=== PATIENT | male | born 1945 | race Caucasian/White ===

== ENCOUNTER 2017-12-11 16:06 | Inpatient (IN) | payer MEDICARE, MEDICAID ==
[2017-12-11] MEDS ORDERED: methylPREDNISolone Sodium Succinate 125 MG/2 ML SDV IVPUSH ONE (17:30)
[2017-12-11] MEDS: Oseltamivir 6 MG/ML Susp 60 ML Bot PO SCH (18:25)
[2017-12-11] MEDS ORDERED: traMADol 50 MG Tab PO PRN (19:19)
[2017-12-11] MEDS ORDERED: [UNRECOGNIZED DRUG - REMARK] TOP PRN (19:19)
[2017-12-11] MEDS: Albuterol/Ipratropium 3.0-0.5 MG/3 ML Neb Soln NEB PRN (20:01)
[2017-12-11] MEDS ORDERED: Oseltamivir 75 MG Cap PO SCH (21:00)
[2017-12-11] MEDS ORDERED: Allopurinol 100 MG Tab ONE (21:19)
[2017-12-11] MEDS: Ferrous Sulfate 325 MG Tab PO SCH (21:19)
[2017-12-11] MEDS: Simvastatin 20 MG Tab PO SCH (21:20)
[2017-12-11] MEDS: Allopurinol 100 MG Tab PO SCH (22:38)
[2017-12-12] MEDS: Omeprazole 20 MG Cap.CR PO SCH (06:59)
[2017-12-12] MEDS: Sodium Chloride 0.9% 5 ML Syringe FLUSH PRN (07:00)
[2017-12-12] MEDS: Albuterol/Ipratropium 3.0-0.5 MG/3 ML Neb Soln NEB PRN (07:12)
[2017-12-12] MEDS: Oseltamivir 6 MG/ML Susp 60 ML Bot PO SCH ×2 (08:42→20:35)
[2017-12-12] MEDS: Cholecalciferol (Vitamin D3) 1,000 Unit Tab PO SCH (08:42)
[2017-12-12] MEDS: Furosemide 40 MG Tab PO SCH (08:43)
[2017-12-12] MEDS: glipiZIDE 5 MG Tab PO SCH (08:48)
[2017-12-12] MEDS: Metoprolol Succinate 50 MG Tab.ER PO SCH (08:49)
[2017-12-12] MEDS: Hydrochlorothiazide/Triamterene 25-37.5 MG Cap PO SCH (08:50)
[2017-12-12] MEDS ORDERED: Codeine/guaiFENesin 100mg-10 MG/5 ML Syrup 10 ML Cup PO PRN (08:54)
[2017-12-12] MEDS ORDERED: predniSONE 20 MG Tab PO ONE (09:00)
[2017-12-12] MEDS ORDERED: glipiZIDE 5 MG Tab.ER PO SCH (09:00)
[2017-12-12] MEDS: Budesonide 0.5 MG/2 ML Neb Susp NEB SCH ×2 (09:36→20:34)
[2017-12-12] MEDS: Albuterol/Ipratropium 3.0-0.5 MG/3 ML Neb Soln NEB SCH ×4 (10:50→21:54)
[2017-12-12] MEDS ORDERED: Propofol 200 MG/20 ML SDV ONE (10:56)
[2017-12-12] MEDS: Simvastatin 20 MG Tab PO SCH (20:30)
[2017-12-12] MEDS: Ferrous Sulfate 325 MG Tab PO SCH (20:30)
[2017-12-12] MEDS: Allopurinol 100 MG Tab PO SCH (21:52)
[2017-12-13] MEDS: Albuterol/Ipratropium 3.0-0.5 MG/3 ML Neb Soln NEB SCH ×6 (02:12→20:31)
[2017-12-13] MEDS: Omeprazole 20 MG Cap.CR PO SCH (06:26)
[2017-12-13] MEDS: Budesonide 0.5 MG/2 ML Neb Susp NEB SCH ×2 (07:36→20:17)
--- NOTE | 2017-12-13 08:08 | PN ---
12/12/2017PATIENT NAME: JAYSON LIU This is a 72-year-old male who was admitted yesterday with influenza A as well as wheezing. He received one dose of Solu-Medrol 125 mg yesterday. I was made aware this morning that his DuoNebs were ordered every 4 hours p.r.n. This will be changed to a scheduled type of situation. The patient states that he feels about the same as he did yesterday, not much improvement. He has started on the Solu-Medrol, which the dose had to be adjusted for creatinine clearance. He was started on oral prednisone 60 mg p.o. one time today and this will be repeated tomorrow as well. Originally, we did plan to discharge him home today after observation however, he has not improved dramatically, and I feel that he needs more time in the hospital. He did have a lab work this morning which showed a normal white count of 7.2, it was 7.1 yesterday. Hemoglobin is 14.7. The remainder of CBC appears to be okay with the exception of a mild left shift of the neutrophils at 85%. Basic metabolic panel is normal with the exception of BUN and creatinine of 36 and 1.41 respectively and a GFR of 49. His glucose this morning was 285, most likely from steroids. PHYSICAL EXAMINATION: VITAL SIGNS: He is afebrile. Temp is 98.9, pulse 74, respirations 20, blood pressure 135/89, oxygen saturation is 90%-93% on room air. SKIN: Warm and dry to touch. CARDIAC: Reveals S1, S2 to be normal. Rate and rhythm are regular. No murmur, click, or gallops is auscultated. He does have inspiratory and expiratory wheezes. He does not have any rales that I can detect. No pedal edema. IMPRESSION: Influenza A with possible asthma/chronic obstructive pulmonary disease exacerbation. PLAN: We will change his DuoNebs to every 4 hours scheduled. He will also start on Pulmicort per nebulizer b.i.d. He will receive prednisone 60 mg x1 this morning. I did order a prescription cough medicine for him to take as needed for cough. We will entertain discharging him home tomorrow if he improves. /[id number]/MODL MTDD
[2017-12-13] MEDS: glipiZIDE 5 MG Tab PO SCH (08:12)
[2017-12-13] MEDS: Hydrochlorothiazide/Triamterene 25-37.5 MG Cap PO SCH (08:14)
[2017-12-13] MEDS: Furosemide 40 MG Tab PO SCH (08:14)
[2017-12-13] MEDS: Metoprolol Succinate 50 MG Tab.ER PO SCH (08:15)
[2017-12-13] MEDS: Cholecalciferol (Vitamin D3) 1,000 Unit Tab PO SCH (08:16)
[2017-12-13] MEDS: Oseltamivir 6 MG/ML Susp 60 ML Bot PO SCH ×2 (08:31→20:29)
[2017-12-13] MEDS: methylPREDNISolone Sodium Succinate 125 MG/2 ML SDV IVPUSH SCH ×2 (10:26→17:41)
[2017-12-13] MEDS: Sodium Chloride 0.9% 5 ML Syringe FLUSH PRN (10:27)
[2017-12-13] MEDS: Ferrous Sulfate 325 MG Tab PO SCH (20:26)
[2017-12-13] MEDS: Simvastatin 20 MG Tab PO SCH (20:26)
[2017-12-13] MEDS: Allopurinol 100 MG Tab PO SCH (21:56)
[2017-12-14] MEDS: methylPREDNISolone Sodium Succinate 125 MG/2 ML SDV IVPUSH SCH ×3 (00:58→21:02)
[2017-12-14] MEDS: Albuterol/Ipratropium 3.0-0.5 MG/3 ML Neb Soln NEB SCH ×6 (00:58→21:02)
[2017-12-14] MEDS: Omeprazole 20 MG Cap.CR PO SCH (06:16)
[2017-12-14] MEDS: Budesonide 0.5 MG/2 ML Neb Susp NEB SCH ×2 (07:34→20:52)
--- NOTE | 2017-12-14 08:09 | PN ---
12/13/2017PATIENT NAME: JAYSON LIU This is a 72-year-old male who was admitted to the hospital on 05/10/2018 with influenza A with wheezing. The patient's wheezing has not improved too much at all during his hospitalization. He is on DuoNebs every four hours as well as Pulmicort b.i.d. He received a one time dose of Solu-Medrol 125 on admission and was changed to oral prednisone yesterday. He continues to feel as though he is wheezing. He states he feels marginally better than he did on admission. He has been afebrile since admission. SIGNIFICANT LABORATORY DATA: White count has increased from 7.2 to 10.0, but still normal. Hemoglobin and hematocrit are normal at 14.1 and 45.1 respectively. BUN and creatinine are elevated at 38 and 1.43 with a GFR of 48. Glucose is 160 today. He does take glipizide and we will start checking Accu- Cheks. An A1c will be added to his lab work tomorrow. Initially, we did plan to send him home today, however, with no improvement in the wheezing. I feel he needs to stay one more day. PHYSICAL EXAMINATION: VITAL SIGNS: Temp is 97.2, pulse 90, respirations is 24, blood pressure 133/78, oxygen saturation is 95% on 2 L of oxygen. SKIN: Warm and dry to touch. CARDIAC: Reveals S1, S2 to be normal. Rate and rhythm are regular. No murmur, click, or gallop is auscultated. LUNGS: Inspiratory as well as expiratory wheezes throughout. He does not appear to be in any respiratory distress. There is mild pedal edema. IMPRESSION: Influenza A with wheezing, not significantly improved. He will stay in the hospital one more day. We will give him Solu-Medrol 80 mg t.i.d. today and he will receive a dose tomorrow as well prior to rounds. Labs will be checked again tomorrow and an A1c will be added to this as well. Accu-Cheks will be checked per protocol. I discussed my findings with Dr. Rachel Forde, who concurs with the plan of care. PLAN: Plan for this patient will be discharge in the morning if there is some improvement. /[id number]/MODL
[2017-12-14] MEDS: glipiZIDE 5 MG Tab PO SCH (08:18)
[2017-12-14] MEDS: Hydrochlorothiazide/Triamterene 25-37.5 MG Cap PO SCH (08:23)
[2017-12-14] MEDS: Metoprolol Succinate 50 MG Tab.ER PO SCH (08:24)
[2017-12-14] MEDS: Furosemide 40 MG Tab PO SCH (08:24)
[2017-12-14] MEDS: Cholecalciferol (Vitamin D3) 1,000 Unit Tab PO SCH (08:25)
[2017-12-14] MEDS: Oseltamivir 6 MG/ML Susp 60 ML Bot PO SCH ×2 (08:36→21:03)
[2017-12-14] MEDS: Sodium Chloride 0.9% 5 ML Syringe FLUSH PRN ×2 (08:41→14:19)
[2017-12-14] MEDS ORDERED: Acetaminophen 325 MG Tab PO PRN (11:11)
[2017-12-14] MEDS ORDERED: Magnesium Hydroxide 400 MG/5 ML Susp 30 ML Cup PO ONE (11:30)
[2017-12-14] MEDS ORDERED: cefTRIAXone 1 GM in Sodium Chloride 0.9% 50 ML IV SCH (13:30)
[2017-12-14] MEDS: Azithromycin 500 MG in Sodium Chloride 0.9% 250 ML IV SCH (14:18)
[2017-12-14] MEDS: cefTRIAXone 1 GM Vial IVPUSH SCH (14:18)
[2017-12-14] MEDS ORDERED: Insulin Aspart 100 Units/ML 3 ML Pen SUBCUT ONE (17:56)
[2017-12-14] MEDS ORDERED: Insulin Regular, Human 100 Units/ML 10 ML Vial SUBCUT PRN (20:53)
[2017-12-14] MEDS: Simvastatin 20 MG Tab PO SCH (21:02)
[2017-12-14] MEDS: Ferrous Sulfate 325 MG Tab PO SCH (21:02)
[2017-12-14] MEDS: Allopurinol 100 MG Tab PO SCH (21:03)
[2017-12-14] MEDS: Insulin Regular, Human 100 Units/ML 10 ML Vial SUBCUT SCH (21:11)
[2017-12-15] MEDS: Albuterol/Ipratropium 3.0-0.5 MG/3 ML Neb Soln NEB SCH ×7 (02:06→21:07)
[2017-12-15] MEDS: Omeprazole 20 MG Cap.CR PO SCH (06:31)
[2017-12-15] MEDS: Budesonide 0.5 MG/2 ML Neb Susp NEB SCH ×2 (07:38→20:49)
--- NOTE | 2017-12-15 08:09 | PN ---
12/14/2017PATIENT NAME: JAYSON LIU This is a 72-year-old male who was admitted to the hospital on Monday12/11/2017 with influenza A and shortness of breath with wheezing. Chest x-ray upon admission was negative for acute changes. The patient's lungs have not improved since he has been in the hospital. He continues to be short of breath and continues to be wheezy. His wheezing seems to have perhaps improved just a tiny bit today. He has been on Solu-Medrol 80 mg IV t.i.d. for the last two days. Initially our plan was to discharge him home today and this has been a daily plan; however, the patient does not seem to be improving significantly at all. His white count has gone from 7.1 on admission to 10.5. Neutrophil count is also increased to 80.8%. His chemistry show a low sodium of 135, this has been normal in the past. BUN and creatinine are at 40 and 1.39 with a GFR of 50, which is actually improved with his hospitalization. Glucose readings have been elevated, most likely secondary to steroid use. A1c was drawn today and was found to be 6.9%. The patient reports today he has not had a bowel movement since he has been in the hospital. He also complains of a dull headache. He has not requested any p.r.n. Tylenol for this. He continues to complain of some shortness of breath and wheezing. He is on continuous oxygen. In addition to the IV steroids, he is also receiving DuoNebs every 4 hours while awake. He is also receiving Pulmicort per nebulizer. All of his home medications have been continued as before. PHYSICAL EXAMINATION: GENERAL: He appears to be in no acute distress. VITAL SIGNS: He has been afebrile. Pulse is 89, respirations 22, blood pressure 131/67, and his oxygen saturation is 95% on 2 L of oxygen. SKIN: Warm and dry to touch. CARDIAC: Exam reveals S1, S2 to be normal. Rate and rhythm are regular. No murmur, click, or gallop is auscultated. LUNGS: Have inspiratory as well as expiratory wheezes. There does not appear to be any rales or rhonchi. He does have some mild pedal edema. IMPRESSION: 1. Influenza A with wheezing and shortness of breath with concern of a hospital-acquired pneumonia with an elevated white count of 10.5, which was normal until today. Chest x-ray will be repeated today and the report pending. I am concerned that he may need some intravenous antibiotics if he has developed a pneumonia. He will continue with IV Solu-Medrol. However, we did reduce the dose from 80 mg IV t.i.d. to 80 mg IV b.i.d. He will continue DuoNebs as well as Tamiflu and Pulmicort. 2. Constipation. He will receive milk of magnesia as a one-time dose and this may be repeated b.i.d. until results are obtained. 3. Headache. I encouraged him to ask for p.r.n. Tylenol for the same. We will continue to monitor him closely. 4. Diabetes mellitus, well controlled until this point with an A1c of 6.9%. His glucose readings have been elevated in the hospital and that is most likely secondary to his use of intravenous steroids. PLAN: Plan will be for discharge tomorrow unless some unforeseen changes occur. /[id number]/MODL
[2017-12-15] MEDS: glipiZIDE 5 MG Tab PO SCH (08:24)
[2017-12-15] MEDS: Insulin Regular, Human 100 Units/ML 10 ML Vial SUBCUT SCH ×4 (08:26→21:05)
[2017-12-15] MEDS: Hydrochlorothiazide/Triamterene 25-37.5 MG Cap PO SCH (08:28)
[2017-12-15] MEDS: Furosemide 40 MG Tab PO SCH (08:28)
[2017-12-15] MEDS: Cholecalciferol (Vitamin D3) 1,000 Unit Tab PO SCH (08:29)
[2017-12-15] MEDS: Metoprolol Succinate 50 MG Tab.ER PO SCH (08:32)
[2017-12-15] MEDS: methylPREDNISolone Sodium Succinate 125 MG/2 ML SDV IVPUSH SCH ×2 (08:33→20:53)
--- NOTE | 2017-12-15 08:39 | PCM.PN ---
- General Info Date of Service: 12/15/17 Admission Dx/Problem (Free Text): Influenza A - Review of Systems Systems Review Comment:: Mr. Mazariegos is seen this morning on inpatient rounds. He was admitted on from clinic after testing positive for Influenza A. He was also noted to be very wheezy and so steroids have been given. He really has not improved significantly since admission. He had a repeat CXR done on 12/14/17 which showed a new right minimal pleural effusion. His WBC had also increased although no fevers. He was started on azithromycin and rocephin yesterday to empirically cover for a possible pneumonia. He continues with oxygen at 2L to keep sats >90%. He was off oxygen this morning for a trial and his sats dropped. "It's no use sending me home if I'll just come right back". He does have a hx of diabetes as well and his BG's have been high because of the steroids. He has been receiving sliding scale insulin for this. He denies any pain, reports his appetite is OK and he is passing his bowels and urine without difficulty. - Patient Data Vitals - Most Recent: Last Vital Signs Temp 98.3 F 12/15/17 06:54 Pulse 73 12/15/17 06:54 Resp 20 12/15/17 06:54 BP 125/76 12/15/17 06:54 Pulse Ox 95 12/15/17 07:35 Weight - Most Recent: 316 lb 11.2 oz I&O - Last 24 Hours: Intake & Output 12/14/17 12/15/17 12/15/17 22:59 06:59 14:59 Intake Total 960 200 Balance 960 200 Lab Results Last 24 Hours: Laboratory Results - last 24 hr 12/14/17 12/14/17 12/15/17 Range/Units 17:51 20:49 06:31 WBC (5.0-10.0) 10^3/uL RBC (4.50-6.00) 10^6/uL Hgb (13.0-17.0) g/dL Hct (40.0-52.0) % MCV (82.0-92.0) fL MCH (27.0-31.0) pg MCHC (32.0-36.0) g/dL RDW (11.5-14.5) % Plt Count (150-300) 10^3/uL MPV (7.4-10.4) fL Neut % (Auto) (50.0-70.0) % Lymph % (Auto) (20.0-40.0) % [place] % (Auto) (2.0-8.0) % Eos % (Auto) (1.0-3.0) % Baso % (Auto) (0.0-1.0) % Neut # (Auto) (2.5-7.0) 10^3/uL Lymph # (Auto) (1.0-4.0) 10^3/uL [place] # (Auto) (0.1-0.8) 10^3/uL Eos # (Auto) (0.1-0.3) 10^3/uL Baso # (Auto) (0.0-0.1) 10^3/uL Sodium (136-145) mmol/L Potassium (3.3-5.3) mmol/L Chloride (98-115) mmol/L Carbon Dioxide (21.0-32.0) mmol/L BUN (6-25) mg/dL Creatinine (0.51-1.17) mg/dL Est Cr Clr Drug Dosing mL/min Estimated GFR (MDRD) mL/min Glucose (70-110) mg/dL POC Glucose 417 H 373 H 273 H (74-106) mg/dl Calcium (8.7-10.3) mg/dL 12/15/17 12/15/17 Range/Units 07:29 07:29 WBC 11.1 H (5.0-10.0) 10^3/uL RBC 4.87 (4.50-6.00) 10^6/uL Hgb 13.9 (13.0-17.0) g/dL Hct 44.5 (40.0-52.0) % MCV 91.3 (82.0-92.0) fL MCH 28.4 (27.0-31.0) pg MCHC 31.1 L (32.0-36.0) g/dL RDW 14.3 (11.5-14.5) % Plt Count 186 (150-300) 10^3/uL MPV 7.9 (7.4-10.4) fL Neut % (Auto) 90.6 H (50.0-70.0) % Lymph % (Auto) 5.7 L (20.0-40.0) % [place] % (Auto) 3.3 (2.0-8.0) % Eos % (Auto) 0.1 L (1.0-3.0) % Baso % (Auto) 0.3 (0.0-1.0) % Neut # (Auto) 10.1 H (2.5-7.0) 10^3/uL Lymph # (Auto) 0.6 L (1.0-4.0) 10^3/uL [place] # (Auto) 0.4 (0.1-0.8) 10^3/uL Eos # (Auto) 0.0 L (0.1-0.3) 10^3/uL Baso # (Auto) 0.0 (0.0-0.1) 10^3/uL Sodium 133 L (136-145) mmol/L Potassium 4.4 (3.3-5.3) mmol/L Chloride 94 L (98-115) mmol/L Carbon Dioxide 28.8 (21.0-32.0) mmol/L BUN 45 H (6-25) mg/dL Creatinine 1.33 H (0.51-1.17) mg/dL Est Cr Clr Drug Dosing 47.86 mL/min Estimated GFR (MDRD) 53 mL/min Glucose 289 H (70-110) mg/dL POC Glucose (74-106) mg/dl Calcium 8.7 (8.7-10.3) mg/dL Med Orders - Current: Current Medications Acetaminophen (Tylenol) 325 - 650 mg PO Q4H PRN PRN Reason: Pain Last Admin: 12/14/17 11:36 Dose: 650 mg Albuterol/Ipratropium (Duoneb 3.0-0.5 Mg/3 Ml) 3 ml NEB Q4HWA [facility] Last Admin: 12/15/17 05:49 Dose: 3 ml Allopurinol (Zyloprim) 300 mg PO DAILY@2200 [facility] Last Admin: 12/14/17 21:03 Dose: 300 mg Budesonide (Pulmicort) 0.5 mg NEB BIDRT [facility] Last Admin: 12/15/17 07:38 Dose: 0.5 mg Ceftriaxone Sodium (Rocephin) 1 gm IVPUSH Q24H [facility] Last Admin: 12/14/17 14:18 Dose: 1 gm Cholecalciferol (Vitamin D3) 2,000 units PO DAILY [facility] Last Admin: 12/15/17 08:29 Dose: 2,000 units Ferrous Sulfate (Ferrous Sulfate) 325 mg PO BEDTIME [facility] Last Admin: 12/14/17 21:02 Dose: 325 mg Furosemide (Lasix) 40 mg PO DAILY [facility] Last Admin: 12/15/17 08:28 Dose: 40 mg Glipizide (Glucotrol) 5 mg PO WITHBREAKFAST [facility] Last Admin: 12/15/17 08:24 Dose: 5 mg Guaifenesin/Codeine Phosphate (Robitussin Ac) 10 ml PO Q4H PRN PRN Reason: Cough Azithromycin 500 mg/ Sodium (Chloride) 250 mls @ 250 mls/hr IV Q24H [facility] Last Admin: 12/14/17 14:18 Dose: 250 mls/hr Insulin Human Regular (Novolin R) 0 unit SUBCUT WITHMEALSANDBED [facility] PRN Reason: Protocol Last Admin: 12/15/17 08:26 Dose: 3 unit Methylprednisolone Sodium Succinate (Solu-Medrol) 80 mg IVPUSH Q12H [facility] Last Admin: 12/14/17 21:02 Dose: 80 mg Metoprolol Succinate (Toprol Xl) 50 mg PO DAILY [facility] Last Admin: 12/14/17 08:24 Dose: 50 mg Omeprazole (Omeprazole) 20 mg PO DAILY@0700 [facility] Last Admin: 12/15/17 06:31 Dose: 20 mg Oseltamivir Phosphate (Tamiflu) 30 mg PO BID [facility] Stop: 12/16/17 09:01 Last Admin: 12/14/17 21:03 Dose: 30 mg Simvastatin (Zocor) 20 mg PO BEDTIME [facility] Last Admin: 12/14/17 21:02 Dose: 20 mg Sodium Chloride (Syrex Flush) 5 ml FLUSH Q8HR PRN PRN Reason: Keep Vein Open Last Admin: 12/14/17 14:19 Dose: 5 ml Tramadol HCl (Ultram) 50 mg PO Q6H PRN PRN Reason: Pain Last Admin: 12/11/17 21:20 Dose: 50 mg Triamterene/HCTZ (Dyazide 25-37.5 Mg) 1 each PO DAILY [facility] Last Admin: 12/15/17 08:28 Dose: 1 each Discontinued Medications Albuterol/Ipratropium (Duoneb 3.0-0.5 Mg/3 Ml) 3 ml NEB Q4H PRN PRN Reason: Shortness Of Breath/wheezing Last Admin: 12/12/17 07:12 Dose: 3 ml Albuterol/Ipratropium (Duoneb 3.0-0.5 Mg/3 Ml) 3 ml NEB Q4HRRT [facility] Last Admin: 12/13/17 09:08 Dose: 3 ml Allopurinol (Zyloprim) Confirm Administered Dose 100 mg .ROUTE .STK-MED ONE Stop: 12/11/17 21:20 Last Admin: 12/11/17 22:30 Dose: Not Given Glipizide (Glucotrol Xl) 5 mg PO DAILY [facility] Insulin Aspart (Novolog) 10 unit SUBCUT ONETIME ONE Stop: 12/14/17 17:57 Last Admin: 12/14/17 18:13 Dose: 10 unit Insulin Human Regular (Novolin R) 0 unit SUBCUT WITHMEALSANDBED PRN; Protocol PRN Reason: Hyperglycemia Magnesium Hydroxide (Milk Of Magnesia) 30 ml PO ONETIME ONE Stop: 12/14/17 11:31 Last Admin: 12/14/17 11:36 Dose: 30 ml Methylprednisolone Sodium Succinate (Solu-Medrol) 125 mg IVPUSH ONETIME ONE Stop: 12/11/17 17:31 Last Admin: 12/11/17 17:57 Dose: 125 mg Methylprednisolone Sodium Succinate (Solu-Medrol) 80 mg IVPUSH Q8H [facility] Last Admin: 12/14/17 08:38 Dose: 80 mg Oseltamivir Phosphate (Tamiflu) 75 mg PO BID [facility] Prednisone (Prednisone) 60 mg PO ONETIME ONE Stop: 12/12/17 09:01 Last Admin: 12/12/17 08:43 Dose: 60 mg Propofol (Diprivan 20 Ml) Confirm Administered Dose 400 mg .ROUTE .STK-MED ONE Stop: 12/12/17 10:57 Last Admin: 12/12/17 11:20 Dose: Not Given - Exam Quality Assessment: Supplemental Oxygen General: Alert, Oriented, Cooperative, No Acute Distress Lungs: Wheezing (Although the wheezing is improved from when I last listened to him 3 days ago.) Cardiovascular: Regular Rate, Regular Rhythm, No Murmurs GI/Abdominal Exam: Normal Bowel Sounds - Problem List & Annotations (1) Influenza A SNOMED Code(s): 729143982 Code(s): J10.1 - FLU DUE TO OTH IDENT INFLUENZA VIRUS W OTH RESP MANIFEST Status: Acute Current Visit: Yes (2) CKD (chronic kidney disease) stage 3, GFR 30-59 ml/min SNOMED Code(s): 505422460 Code(s): N18.3 - CHRONIC KIDNEY DISEASE, STAGE 3 (MODERATE) Status: Acute Current Visit: Yes (3) Diabetes SNOMED Code(s): 95342930 Code(s): E11.9 - TYPE 2 DIABETES MELLITUS WITHOUT COMPLICATIONS Status: Acute Current Visit: Yes (4) Hypertension SNOMED Code(s): 23842946 Code(s): I10 - ESSENTIAL (PRIMARY) HYPERTENSION Status: Acute Current Visit: Yes (5) Hyperlipidemia SNOMED Code(s): 32086032 Code(s): E78.5 - HYPERLIPIDEMIA, UNSPECIFIED Status: Acute Current Visit : Yes - Problem List Review Problem List Initiated/Reviewed/Updated: Yes - My Orders Last 24 Hours: My Active Orders 12/16/17 05:11 BMP [BASIC METABOLIC PANEL,BMP] [CHEM] AM CBC WITH AUTO DIFF [HEME] AM - Assessment Assessment:: Influenza A Wheezing Hypoxia DM HTN Hyperlipidemia CKD - Plan Plan:: Influenza A. Continue with tamiflu BID to finish out a 5 day course. Wheezing. Continue with steroids and nebs. Hypoxia. Oxygen to keep sats >90%. DM. SSI, continue home meds. HTN. Continue home meds, controlled. Hyperlipidemia. Continue home meds. CKD. Stable. Will continue with azithromycin and rocephin. Uncertain discharge date, ideally will have him weaned off oxygen as he is not on this as an outpatient.
[2017-12-15] MEDS: Oseltamivir 6 MG/ML Susp 60 ML Bot PO SCH ×2 (09:12→21:03)
[2017-12-15] MEDS: cefTRIAXone 1 GM Vial IVPUSH SCH (14:57)
[2017-12-15] MEDS: Azithromycin 500 MG in Sodium Chloride 0.9% 250 ML IV SCH (15:07)
[2017-12-15] MEDS: Simvastatin 20 MG Tab PO SCH (21:00)
[2017-12-15] MEDS: Ferrous Sulfate 325 MG Tab PO SCH (21:00)
[2017-12-15] MEDS: Allopurinol 100 MG Tab PO SCH (21:04)
[2017-12-16] MEDS: Albuterol/Ipratropium 3.0-0.5 MG/3 ML Neb Soln NEB SCH ×6 (01:42→21:45)
[2017-12-16] MEDS: Omeprazole 20 MG Cap.CR PO SCH (06:09)
[2017-12-16] MEDS: glipiZIDE 5 MG Tab PO SCH (08:33)
[2017-12-16] MEDS: Insulin Regular, Human 100 Units/ML 10 ML Vial SUBCUT SCH ×4 (08:36→21:43)
[2017-12-16] MEDS: Furosemide 40 MG Tab PO SCH (08:37)
[2017-12-16] MEDS: Budesonide 0.5 MG/2 ML Neb Susp NEB SCH ×2 (08:39→20:24)
[2017-12-16] MEDS: Cholecalciferol (Vitamin D3) 1,000 Unit Tab PO SCH (08:40)
[2017-12-16] MEDS: Hydrochlorothiazide/Triamterene 25-37.5 MG Cap PO SCH (08:41)
[2017-12-16] MEDS: Metoprolol Succinate 50 MG Tab.ER PO SCH (08:41)
[2017-12-16] MEDS: Oseltamivir 6 MG/ML Susp 60 ML Bot PO SCH (08:41)
[2017-12-16] MEDS: methylPREDNISolone Sodium Succinate 125 MG/2 ML SDV IVPUSH SCH ×2 (08:47→20:34)
[2017-12-16] MEDS ORDERED: Albuterol/Ipratropium 3.0-0.5 MG/3 ML Neb Soln NEB ONE (10:24)
[2017-12-16] MEDS ORDERED: Sodium Chloride 0.9% 500 ML IV SCH (10:30)
--- NOTE | 2017-12-16 11:29 | PCM.PN ---
- General Info Date of Service: 12/16/17 Admission Dx/Problem (Free Text): Influenza A Subjective Update: Patient was seen this morning on inpatient rounds. He was admitted on 2017 for influenza A positive results. He has made gradual improvement since admission. However, wheezing and shortness of breath persist. Patient is currently on Rocephin, Zithromax, and Solu-Medrol daily to empirically cover for possible pneumonia. Chest x-ray done on 12/14/2017 showed minimal right pleural effusion. He is currently off oxygen while in bed, and oxygen saturation maintains at 92%. However, when he does ambulate oxygen saturation does drop into the 80s. He is concerned that he is not getting better, and is not comfortable being discharged. Functional Status: Reports: Pain Controlled - Review of Systems General: Reports: No Symptoms. Denies: Fever HEENT: Reports: No Symptoms Pulmonary: Reports: Shortness of Breath, Wheezing Cardiovascular: Reports: No Symptoms Gastrointestinal: Reports: No Symptoms Genitourinary: Reports: No Symptoms Musculoskeletal: Reports: No Symptoms Skin: Reports: No Symptoms Neurological: Reports: No Symptoms Psychiatric: Reports: No Symptoms - Patient Data Vitals - Most Recent: Last Vital Signs Temp 98.7 F 12/16/17 06:13 Pulse 67 12/16/17 08:41 Resp 20 12/16/17 06:13 BP 133/80 12/16/17 08:41 Pulse Ox 95 12/16/17 09:00 Weight - Most Recent: 316 lb 11.2 oz I&O - Last 24 Hours: Intake & Output 12/15/17 12/16/17 12/16/17 22:59 06:59 14:59 Intake Total 700 50 Balance 700 50 Lab Results Last 24 Hours: Laboratory Results - last 24 hr 12/15/17 12/15/17 12/15/17 Range/Units 11:25 17:29 20:58 WBC (5.0-10.0) 10^3/uL RBC (4.50-6.00) 10^6/uL Hgb (13.0-17.0) g/dL Hct (40.0-52.0) % MCV (82.0-92.0) fL MCH (27.0-31.0) pg MCHC (32.0-36.0) g/dL RDW (11.5-14.5) % Plt Count (150-300) 10^3/uL MPV (7.4-10.4) fL Neut % (Auto) (50.0-70.0) % Lymph % (Auto) (20.0-40.0) % Benton % (Auto) (2.0-8.0) % Eos % (Auto) (1.0-3.0) % Baso % (Auto) (0.0-1.0) % Neut # (Auto) (2.5-7.0) 10^3/uL Lymph # (Auto) (1.0-4.0) 10^3/uL Benton # (Auto) (0.1-0.8) 10^3/uL Eos # (Auto) (0.1-0.3) 10^3/uL Baso # (Auto) (0.0-0.1) 10^3/uL Sodium (136-145) mmol/L Potassium (3.3-5.3) mmol/L Chloride (98-115) mmol/L Carbon Dioxide (21.0-32.0) mmol/L BUN (6-25) mg/dL Creatinine (0.51-1.17) mg/dL Est Cr Clr Drug Dosing mL/min Estimated GFR (MDRD) mL/min Glucose (70-110) mg/dL POC Glucose 294 H 246 H 252 H (74-106) mg/dl Calcium (8.7-10.3) mg/dL 12/16/17 12/16/17 12/16/17 Range/Units 06:08 08:10 08:10 WBC 10.6 H (5.0-10.0) 10^3/uL RBC 4.87 (4.50-6.00) 10^6/uL Hgb 14.5 (13.0-17.0) g/dL Hct 44.4 (40.0-52.0) % MCV 91.2 (82.0-92.0) fL MCH 29.8 (27.0-31.0) pg MCHC 32.7 (32.0-36.0) g/dL RDW 14.8 H (11.5-14.5) % Plt Count 193 (150-300) 10^3/uL MPV 8.4 (7.4-10.4) fL Neut % (Auto) 90.8 H (50.0-70.0) % Lymph % (Auto) 6.1 L (20.0-40.0) % Benton % (Auto) 2.9 (2.0-8.0) % Eos % (Auto) 0.1 L (1.0-3.0) % Baso % (Auto) 0.1 (0.0-1.0) % Neut # (Auto) 9.7 H (2.5-7.0) 10^3/uL Lymph # (Auto) 0.6 L (1.0-4.0) 10^3/uL Benton # (Auto) 0.3 (0.1-0.8) 10^3/uL Eos # (Auto) 0.0 L (0.1-0.3) 10^3/uL Baso # (Auto) 0.0 (0.0-0.1) 10^3/uL Sodium 131 L (136-145) mmol/L Potassium 4.2 (3.3-5.3) mmol/L Chloride 93 L (98-115) mmol/L Carbon Dioxide 27.8 (21.0-32.0) mmol/L BUN 51 H* (6-25) mg/dL Creatinine 1.33 H (0.51-1.17) mg/dL Est Cr Clr Drug Dosing 47.86 mL/min Estimated GFR (MDRD) 53 mL/min Glucose 275 H (70-110) mg/dL POC Glucose 235 H (74-106) mg/dl Calcium 8.8 (8.7-10.3) mg/dL Med Orders - Current: Current Medications Acetaminophen (Tylenol) 325 - 650 mg PO Q4H PRN PRN Reason: Pain Last Admin: 12/14/17 11:36 Dose: 650 mg Albuterol/Ipratropium (Duoneb 3.0-0.5 Mg/3 Ml) 3 ml NEB Q4HWA [facility] Last Admin: 12/16/17 10:17 Dose: 3 ml Allopurinol (Zyloprim) 300 mg PO DAILY@2200 [facility] Last Admin: 12/15/17 21:04 Dose: 300 mg Budesonide (Pulmicort) 0.5 mg NEB BIDRT [facility] Last Admin: 12/16/17 08:39 Dose: 0.5 mg Ceftriaxone Sodium (Rocephin) 1 gm IVPUSH Q24H [facility] Last Admin: 12/15/17 14:57 Dose: 1 gm Cholecalciferol (Vitamin D3) 2,000 units PO DAILY [facility] Last Admin: 12/16/17 08:40 Dose: 2,000 units Ferrous Sulfate (Ferrous Sulfate) 325 mg PO BEDTIME [facility] Last Admin: 12/15/17 21:00 Dose: 325 mg Furosemide (Lasix) 40 mg PO DAILY [facility] Last Admin: 12/16/17 08:37 Dose: 40 mg Glipizide (Glucotrol) 5 mg PO WITHBREAKFAST [facility] Last Admin: 12/16/17 08:33 Dose: 5 mg Guaifenesin/Codeine Phosphate (Robitussin Ac) 10 ml PO Q4H PRN PRN Reason: Cough Azithromycin 500 mg/ Sodium (Chloride) 250 mls @ 250 mls/hr IV Q24H [facility] Last Admin: 12/15/17 15:07 Dose: 250 mls/hr Insulin Human Regular (Novolin R) 0 unit SUBCUT WITHMEALSANDBED [facility] PRN Reason: Protocol Last Admin: 12/16/17 08:36 Dose: 2 unit Methylprednisolone Sodium Succinate (Solu-Medrol) 80 mg IVPUSH Q12H [facility] Last Admin: 12/16/17 08:47 Dose: 80 mg Metoprolol Succinate (Toprol Xl) 50 mg PO DAILY [facility] Last Admin: 12/16/17 08:41 Dose: 50 mg Omeprazole (Omeprazole) 20 mg PO DAILY@0700 [facility] Last Admin: 12/16/17 06:09 Dose: 20 mg Simvastatin (Zocor) 20 mg PO BEDTIME [facility] Last Admin: 12/15/17 21:00 Dose: 20 mg Sodium Chloride (Syrex Flush) 5 ml FLUSH Q8HR PRN PRN Reason: Keep Vein Open Last Admin: 12/14/17 14:19 Dose: 5 ml Tramadol HCl (Ultram) 50 mg PO Q6H PRN PRN Reason: Pain Last Admin: 12/11/17 21:20 Dose: 50 mg Triamterene/HCTZ (Dyazide 25-37.5 Mg) 1 each PO DAILY [facility] Last Admin: 12/16/17 08:41 Dose: 1 each Discontinued Medications Albuterol/Ipratropium (Duoneb 3.0-0.5 Mg/3 Ml) 3 ml NEB Q4H PRN PRN Reason: Shortness Of Breath/wheezing Last Admin: 12/12/17 07:12 Dose: 3 ml Albuterol/Ipratropium (Duoneb 3.0-0.5 Mg/3 Ml) 3 ml NEB Q4HRRT [facility] Last Admin: 12/13/17 09:08 Dose: 3 ml Albuterol/Ipratropium (Duoneb 3.0-0.5 Mg/3 Ml) 3 ml NEB ONETIME ONE Stop: 12/16/17 10:25 Allopurinol (Zyloprim) Confirm Administered Dose 100 mg .ROUTE .STK-MED ONE Stop: 12/11/17 21:20 Last Admin: 12/11/17 22:30 Dose: Not Given Glipizide (Glucotrol Xl) 5 mg PO DAILY [facility] Sodium Chloride (Normal Saline) 500 mls @ 999 mls/hr IV .BOLUS [facility] Last Admin: 12/16/17 10:47 Dose: 999 mls/hr Insulin Aspart (Novolog) 10 unit SUBCUT ONETIME ONE Stop: 12/14/17 17:57 Last Admin: 12/14/17 18:13 Dose: 10 unit Insulin Human Regular (Novolin R) 0 unit SUBCUT WITHMEALSANDBED PRN; Protocol PRN Reason: Hyperglycemia Magnesium Hydroxide (Milk Of Magnesia) 30 ml PO ONETIME ONE Stop: 12/14/17 11:31 Last Admin: 12/14/17 11:36 Dose: 30 ml Methylprednisolone Sodium Succinate (Solu-Medrol) 125 mg IVPUSH ONETIME ONE Stop: 12/11/17 17:31 Last Admin: 12/11/17 17:57 Dose: 125 mg Methylprednisolone Sodium Succinate (Solu-Medrol) 80 mg IVPUSH Q8H [facility] Last Admin: 12/14/17 08:38 Dose: 80 mg Oseltamivir Phosphate (Tamiflu) 75 mg PO BID KAYLIN Oseltamivir Phosphate (Tamiflu) 30 mg PO BID [facility] Stop: 12/16/17 09:01 Last Admin: 12/16/17 08:41 Dose: 30 mg Prednisone (Prednisone) 60 mg PO ONETIME ONE Stop: 12/12/17 09:01 Last Admin: 12/12/17 08:43 Dose: 60 mg Propofol (Diprivan 20 Ml) Confirm Administered Dose 400 mg .ROUTE .STK-MED ONE Stop: 12/12/17 10:57 Last Admin: 12/12/17 11:20 Dose: Not Given - Exam Quality Assessment: Supplemental Oxygen General: Alert, Oriented, Cooperative, No Acute Distress Neck: Supple Lungs: Wheezing (Diffuse end expiratory) Cardiovascular: Regular Rate, Regular Rhythm, No Murmurs GI/Abdominal Exam: Normal Bowel Sounds, Soft, Non-Tender Back Exam: Normal Inspection. No: CVA Tenderness (L), CVA Tenderness (R) Extremities: Normal Inspection, No Pedal Edema Skin: Warm, Dry, Intact Neurological: Normal Speech, Normal Tone Psy/Mental Status: Alert, Normal Affect, Normal Mood - Problem List Review Problem List Initiated/Reviewed/Updated: Yes - My Orders Last 24 Hours: My Active Orders 12/16/17 11:20 Chest 2V [CR] Routine - Assessment Assessment:: Influenza A Wheezing Hypoxia DM HTN Hyperlipidemia CKD Patient continues to have wheezing and shortness of breath with ambulation, although he is on DuoNeb every 4 hours and Solu-Medrol 80 mg twice a day. Values show BUN value of 51 from 45 yesterday. There has been a gradual increase in BUN since admission. Patient has completed course of Tamiflu for influenza A, but will continue on Rocephin, Zithromax, DuoNeb, and Solu-Medrol. Chest x-ray ordered today to evaluate for any worsening of condition. Glucose control will be monitored closely, due to steroid use. Patient will not be discharged today, with consideration in near future if symptoms improve. - Plan Plan:: Influenza A. Continue with tamiflu BID to finish out a 5 day course. Wheezing. Continue with steroids and nebs. Hypoxia. Oxygen to keep sats >90%. DM. SSI, continue home meds. HTN. Continue home meds, controlled. Hyperlipidemia. Continue home meds. CKD. Stable. Will continue with azithromycin and rocephin. Uncertain discharge date, ideally will have him weaned off oxygen as he is not on this as an outpatient.
[2017-12-16] MEDS: cefTRIAXone 1 GM Vial IVPUSH SCH (12:56)
[2017-12-16] MEDS: Azithromycin 500 MG in Sodium Chloride 0.9% 250 ML IV SCH (14:40)
[2017-12-16] MEDS: Sodium Chloride 0.9% 5 ML Syringe FLUSH PRN (20:35)
[2017-12-16] MEDS: Ferrous Sulfate 325 MG Tab PO SCH (20:37)
[2017-12-16] MEDS: Simvastatin 20 MG Tab PO SCH (20:37)
[2017-12-16] MEDS: Allopurinol 100 MG Tab PO SCH (21:44)
[2017-12-17] MEDS: Albuterol/Ipratropium 3.0-0.5 MG/3 ML Neb Soln NEB SCH ×6 (01:15→21:56)
[2017-12-17] MEDS: Omeprazole 20 MG Cap.CR PO SCH (06:00)
[2017-12-17] MEDS: Budesonide 0.5 MG/2 ML Neb Susp NEB SCH ×2 (07:50→20:18)
[2017-12-17] MEDS: Cholecalciferol (Vitamin D3) 1,000 Unit Tab PO SCH (08:11)
[2017-12-17] MEDS: Hydrochlorothiazide/Triamterene 25-37.5 MG Cap PO SCH (08:11)
[2017-12-17] MEDS: Metoprolol Succinate 50 MG Tab.ER PO SCH (08:12)
[2017-12-17] MEDS: Furosemide 40 MG Tab PO SCH (08:12)
[2017-12-17] MEDS: Insulin Regular, Human 100 Units/ML 10 ML Vial SUBCUT SCH ×4 (08:13→21:58)
[2017-12-17] MEDS: glipiZIDE 5 MG Tab PO SCH (08:14)
[2017-12-17] MEDS: methylPREDNISolone Sodium Succinate 125 MG/2 ML SDV IVPUSH SCH ×2 (08:17→20:31)
[2017-12-17] MEDS: Sodium Chloride 0.9% 5 ML Syringe FLUSH PRN (11:02)
[2017-12-17] MEDS: Sodium Chloride 0.9% 1,000 ML IV SCH ×2 (11:02→20:31)
[2017-12-17] MEDS: cefTRIAXone 1 GM Vial IVPUSH SCH (14:36)
[2017-12-17] MEDS: Azithromycin 500 MG in Sodium Chloride 0.9% 250 ML IV SCH (14:37)
[2017-12-17] MEDS: Ferrous Sulfate 325 MG Tab PO SCH (20:22)
[2017-12-17] MEDS: Simvastatin 20 MG Tab PO SCH (20:22)
[2017-12-17] MEDS: Allopurinol 100 MG Tab PO SCH (21:56)
[2017-12-18] MEDS: Albuterol/Ipratropium 3.0-0.5 MG/3 ML Neb Soln NEB SCH ×3 (01:33→09:59)
[2017-12-18] MEDS: Sodium Chloride 0.9% 1,000 ML IV SCH (04:44)
[2017-12-18] MEDS: Omeprazole 20 MG Cap.CR PO SCH (06:11)
[2017-12-18 06:21] VITALS: BP 154/90
[2017-12-18] MEDS: glipiZIDE 5 MG Tab PO SCH (08:09)
[2017-12-18] MEDS: Hydrochlorothiazide/Triamterene 25-37.5 MG Cap PO SCH (08:09)
[2017-12-18] MEDS: Furosemide 40 MG Tab PO SCH (08:10)
[2017-12-18] MEDS: Cholecalciferol (Vitamin D3) 1,000 Unit Tab PO SCH (08:13)
[2017-12-18] MEDS: Insulin Regular, Human 100 Units/ML 10 ML Vial SUBCUT SCH (08:26)
[2017-12-18] MEDS: Metoprolol Succinate 50 MG Tab.ER PO SCH (08:29)
[2017-12-18] MEDS: Budesonide 0.5 MG/2 ML Neb Susp NEB SCH (08:42)
--- NOTE | 2017-12-19 08:21 | DISCH ---
SUBJECTIVE: This is a 72-year-old male, who was admitted to the hospital from the clinic on 12/11/2017. He had influenza A with respiratory complications. Initial chest x-ray showed no acute process. Because of continued and worsening wheezing and shortness of breath, a chest x-ray was repeated on 12/14/2017 and found to have a new right lower lobe infiltrate/effusion. He had been, since admission, treated with Tamiflu. On 12/14/2017, antibiotics in the form of Rocephin, and Zithromax were added on a daily basis. He was also treated with IV steroids which were tapered back somewhat. His lungs have improved from a wheezing standpoint considerably. What extended his hospital stay was worsening renal function. On 12/16/2017, his BUN was 51. He was given a fluid bolus of 500 mL. On 12/17/2017, BUN went up to 60 with a creatinine of 1.6. Today it is now improved again at BUN 51 and creatinine 1.39 with a GFR of 50. This has improved; however, still not back at baseline. The patient is ready to go home. I believe we have optimized his lung function as much as possible and we will follow his renal function on outpatient followup. OBJECTIVE: VITAL SIGNS: Temp is 98.6, pulse 82, respirations 20, blood pressure 154/90, and his O2 saturation is 93% on room air. SKIN: Warm and dry to touch. CARDIAC EXAM: Reveals S1, S2 to be normal. Rate and rhythm are regular. No murmur, click, or gallop is auscultated. LUNGS: Lungs have some very faint wheezes which are considerably improved. No rales or rhonchi. There is mild pedal edema. IMPRESSION: 1. Influenza A, completely treated with a course of Tamiflu 75 mg b.i.d. for five days. He will not need any additional antiviral therapy. 2. Wheezing with a questionable right lower lobe infiltrate. This has been treated with five days of Rocephin as well as Zithromax. In anticipation of discharge last week, a taper of prednisone and two additional days of Zithromax were sent to the pharmacy and picked up by the patient's . He will complete these two medications as directed. He will also be treated with DuoNeb as well as Pulmicort per nebulizer. I will see him back on 12/22/2017 in the clinic and lab work will be repeated at that time. /[id number]/MODL
--- NOTE | 2017-12-19 08:21 | PN ---
12/17/2017 PATIENT NAME: JAYSON LIU This is a 72-year-old male, who is being seen today on inpatient rounds. The patient has been treated for influenza A with some respiratory complications of the same. He has been treated with IV ceftriaxone, Zithromax, and Solu-Medrol. His lungs have improved. However, his renal function has worsened. On 12/16/2017, his BUN was 51, and he received a bolus of fluids. Today, his BUN is 60 and creatinine 1.60 with a GFR of 43. I am reluctant to send him home because of his worsening renal function. The patient is agreeable to stay. PHYSICAL EXAMINATION: VITAL SIGNS: Temp is 98.6, pulse 82, respirations 20, blood pressure 154/90, and O2 saturation is 92% on room air. SKIN: Warm and dry to touch. CARDIAC EXAM: Reveals S1, S2 to be normal. Rate and rhythm are regular. No murmur, click, or gallop is auscultated. LUNGS: Lungs have expiratory and inspiratory wheezing bilaterally to auscultation. However, this is greatly improved from previous examinations. IMPRESSION: 1. Influenza A, Tamiflu has been completed. 2. Right lower lobe effusion/infiltrate. He has been treated with antibiotics accordingly. 3. Worsen renal function. He did receive a bolus of 500 mL of normal saline yesterday. However, his renal function did not improve from the same. We will treat him with normal saline intravenous fluids at 125 mL/h for the next 24 hours and entertain discharge tomorrow if his renal function has improved. /[id number]/MODL
== END 2017-12-18 10:40 | disposition home or self-care (01) | DRG 195 ==
LOC: KA.MS 16:06 → KA.OC 16:06 → INTOOBSV 17:02 → KA.MS 17:02 → OBSVTOIN 12-12 11:15
DX: J09.X2 Influenza due to identified novel influenza A virus with other respiratory manifestations (principal); R06.2 Wheezing; E11.9 Type 2 diabetes mellitus without complications; I10 Essential (primary) hypertension; E78.00 Pure hypercholesterolemia, unspecified; D50.9 Iron deficiency anemia, unspecified; E55.9 Vitamin D deficiency, unspecified; M19.90 Unspecified osteoarthritis, unspecified site; G89.29 Other chronic pain; K21.9 Gastro-esophageal reflux disease without esophagitis; Z79.899 Other long term (current) drug therapy; R09.02 Hypoxemia; I12.9 Hypertensive chronic kidney disease with stage 1 through stage 4 chronic kidney disease, or unspecified chronic kidney disease; N18.3 Chronic kidney disease, stage 3 (moderate)
CPT/HCPCS: 36415; 71046; 80048; 80053; 82962; 83036; 85025; 87804; 94640; 96374; 96376; A9270-GY; G0378; G0379; J0456; J0696; J1815-GY; J1817-GY; J2930; J7030; J7040; J7050